=== PATIENT | female | born 1940 | race Caucasian/White ===

== ENCOUNTER 2018-11-23 08:47 | Inpatient (IN) ==
--- NOTE | 2018-10-22 10:55 | Anesthesiology Consultation ---
Date of Service October 22, 2018 Assessment & Plan (1) Encounter for pre-operative examination: Chart Review Chart Review: Acceptable Risk for Surgery and Patient seen in Pre Admission Testing Teaching & Discussion Instructed NPO after midnight before surgery, except medications with 15 cc of water. Medication instructions provided according to the PAT guidelines. History Surgery Operation Date: 11/23/18 08:50 Proposed Procedures p Left Reverse Total Shoulder Arthroplasty - Michael Horta, Height/Weight Height: 5 ft 4 in Weight: 72.4 kg Allergies Allergy/AdvReac Type Severity Reaction Status Date / Time No Known Allergies Allergy Verified 10/19/18 07:45 non latex bandaids Allergy Intermediate raw, Uncoded 10/22/18 11:14 blistery skin Medications Home Medications Medication Instructions Recorded Confirmed Last Taken alprazolam [Xanax] 0.25 mg PO BID PRN 10/19/18 10/19/18 Unknown calcium carbonate [Calcium 600] 1,200 mg PO QAM 10/19/18 10/19/18 Unknown cholecalciferol (vitamin D3) 400 unit PO QAM 10/19/18 10/19/18 Unknown [Vitamin D3] coenzyme Q10 [CoQ-10] 100 mg PO QAM 10/19/18 10/19/18 Unknown glucosamine-chondroitin 1 tab PO QAM 10/19/18 10/19/18 Unknown levothyroxine [Synthroid] 75 mcg PO QAM 10/19/18 10/19/18 Unknown meloxicam 7.5 mg PO BID 10/19/18 10/19/18 Unknown potassium chloride 10 meq PO QAM 10/19/18 10/19/18 Unknown pravastatin 40 mg PO QPM 10/19/18 10/19/18 Unknown triamterene-hydrochlorothiazid 1 tab PO QAM 10/19/18 10/19/18 Unknown vitamin B complex 1 tab PO QAM 10/19/18 10/19/18 Unknown Past Medical History Medical History Anxiety Depression Hyperlipidemia Hypertension 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 History of PONV No Motion Sickness Screening History of Motion Sickness: No Social History Smoking Status: Former smoker Do You Dip or Chew Tobacco: No Smoking End Date: QUIT 17 YEARS AGO Hx Alcohol Use: Yes Alcohol type: wine alcohol intake frequency: holidays/special occasions only Hx Substance Use: No substance use type: does not use Exercise / Class Metabolic Activity II 4-5 Yardwork/Stairs/Walk up hill (denies CP or SOB with stairs) Review of Systems Pt denies any recent chest pain, shortness of breath, palpitations, cough, fever or URI. Physical Exam Vital Signs BP: 137/79 P: 73bpm SPO2: 97% RA T: 97.6 F R: 16 ENMT Mouth: + dental restorations (few crowns); no chipped teeth and no loose teeth Thyromental Distance: > or= 3.5 Finger Breadths (3.5) Mallampati Class: II Neck + short neck; neck extension not limited Respiratory normal respiratory effort Auscultation: lungs clear to auscultation bilaterally Cardiovascular Rate/Rhythm: regular rate and regular rhythm Heart Sounds: no murmur Vessels: no carotid bruit Extremities: no edema Testing Electrocardiogram Date: 10/22/18 Findings: + NSR @ (73) R superior axis deviation. Low voltage QRS. Cannot r/o anterior infarct, age undetermined. *pt with good functional status, no CP complaints or significant cardiac hx, and large pendulous breasts that may have affected lead placement. EKG on stress test 2017 (below) showed PRWP/NSTWA. Chest X-Ray Date: 10/22/18 Findings: + NAD Stress Test Date: 06/02/17 Type: nuclear There is no significant regadenoson-induced perfusion abnormality detected to suggest the presence of ischemia. Left ventricle is normal in size. Left cj tricular wall motion is normal. Left ventricular ejection fraction is normal. There is right middle lobe linear atelectasis or scarring. Laboratory Results 10/22/18 11:35 10/22/18 11:35 Blood Type B Positive 10/22/18 11:35 Antibody Screen NEGATIVE 10/22/18 11:35 PT 10.3 Seconds (9.0-12.0) 10/22/18 11:35 INR 1.0 (0.9-1.1) 10/22/18 11:35 APTT 25.1 Seconds (21.0-31.0) 10/22/18 11:35
--- NOTE | 2018-10-22 10:58 | PAT Medication Instructions ---
Medication Instructions Date of Service October 22, 2018 Home Medications alprazolam [Xanax] 0.25 mg PO BID PRN calcium carbonate [Calcium 600] 1,200 mg PO QAM cholecalciferol (vitamin D3) 400 unit PO QAM coenzyme Q10 [CoQ-10] 100 mg PO QAM glucosamine-chondroitin 1 tab PO QAM levothyroxine [Synthroid] 75 mcg PO QAM meloxicam 7.5 mg PO BID potassium chloride 10 meq PO QAM pravastatin 40 mg PO QPM triamterene-hydrochlorothiazide 1 tab PO QAM vitamin B complex 1 tab PO QAM ASK your surgeon for instructions meloxicam 7.5 mg PO BID STOP taking 2 weeks before surgery coenzyme Q10 [CoQ-10] 100 mg PO QAM glucosamine-chondroitin 1 tab PO QAM DO NOT take the morning of surgery calcium carbonate [Calcium 600] 1,200 mg PO QAM cholecalciferol (vitamin D3) 400 unit PO QAM potassium chloride 10 meq PO QAM triamterene-hydrochlorothiazide 1 tab PO QAM vitamin B complex 1 tab PO QAM Take morning of surgery With a small sip of water, OTHERWISE NOTHING TO EAT OR DRINK AFTER MIDNIGHT: alprazolam [Xanax] 0.25 mg PO BID PRN (if needed) levothyroxine [Synthroid] 75 mcg PO QAM Take evening before surgery alprazolam [Xanax] 0.25 mg PO BID PRN (if needed) pravastatin 40 mg PO QPM Other Notes If you have any questions please call us at [phone] or [phone] or [phone] or [phone]
--- NOTE | 2018-10-22 12:17 | XRay Report ---
XR chest Pre-admission PA/Lat HISTORY: 78 years-old Female pat preoperative exam. No acute chest complaints COMPARISON: None available TECHNIQUE: PA and lateral views of the chest FINDINGS: Cardiac mediastinal and hilar silhouettes are within normal limits. Calcification the thoracic aortic arch. Surgical clip projects over the right lower neck. No pneumothorax, pleural effusion, focal air space consolidation or overt pulmonary edema. Indeterminate 11 mm radiodensity projects over the uppe r abdomen on the lateral view. Degenerative changes of the shoulders and spine. IMPRESSION: No acute process. The above report was generated using voice recognition software. It may contain grammatical, syntax o r spelling errors. Electronically signed by: Farhat Johnson M.D. 10/22/2018 12:16 PM
[2018-10-22 12:43] LABS: Basophils # (auto) 0.02 K/uL (0-0.2); Basophils % (auto) 0.3 %; Eosinophils # (auto) 0.12 K/uL (0-0.5); Eosinophils % (auto) 1.8 %; Hematocrit (blood only) 38.2 % (37-47); Hemoglobin 12.5 g/dL (12.0-16.0); Immature Granulocytes # (auto) 0.01 K/uL (0.00-0.02); Immature Granulocytes % (auto) 0.1 %; Lymphocytes # (auto) 2.17 K/uL (1.2-3.4); Lymphocytes % (auto) 32.3 %; Mean Corpuscular Hgb Conc 32.7 g/dL (32-36); Mean Corpuscular Volume 94.3 fL (80-100); Mean Platelet Volume 11.1 fL (7.4-10.4); Monocytes # (auto) 0.44 K/uL (0.11-0.59); Monocytes % (auto) 6.5 %; Neutrophils # (auto) 3.96 K/uL (1.4-6.5); Platelet Count 187 K/uL (130-400); RDW Coefficient of Variation 13.2 % (11.5-14.5); RDW Standard Deviation 45.7 fL (36.4-46.3); Red Blood Count 4.05 M/uL (4.2-5.4); White Blood Count 6.72 K/uL (4.8-10.8)
[2018-10-22 12:59] LABS: Partial Thromboplastin Ratio 0.9; Partial Thromboplastin Time 25.1 Seconds (21.0-31.0); Prothrombin Time 10.3 Seconds (9.0-12.0)
[2018-10-22 13:00] LABS: BUN Creatinine Ratio 25.9 (10-20); Calcium 9.5 mg/dl (8.5-10.1); Creatinine Clr Calc Pharmacy 41.1 ml/min; Est GFR (African American) 55.7; Est GFR (Non-African American) 48.1
--- NOTE | 2018-11-20 07:45 | History & Physical Report ---
Date of Service November 20, 2018 Assessment & Plan (1) Primary osteoarthritis of left shoulder: We will proceed with a reverse left shoulder arthroplasty. We have chosen to do a reverse shoulder arthroplasty because of the deformity of her humeral head and her glenoid. Postoperatively she will be placed in a sling and kept overnight for postoperative medical management. She plans to use [email or web address] upon discharge. 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 She had a several year history of increasing left shoulder pain. X-rays and clinical examination have been diagnostic for advanced osteoarthritis of the left shoulder. After failing conservative treatment, she has elected proceed with a left reverse shoulder arthroplasty. Allergies Allergy/AdvReac Type Severity Reaction Status Date / Time No Known Allergies Allergy Verified 10/19/18 07:45 non latex bandaids Allergy Intermediate raw, Uncoded 10/22/18 11:14 blistery skin Home Medications Home Medications Medication Instructions Recorded Confirmed Type alprazolam [Xanax] 0.25 mg PO BID PRN 10/19/18 10/19/18 History calcium carbonate [Calcium 600] 1,200 mg PO QAM 10/19/18 10/19/18 History cholecalciferol (vitamin D3) 400 unit PO QAM 10/19/18 10/19/18 History [Vitamin D3] coenzyme Q10 [CoQ-10] 100 mg PO QAM 10/19/18 10/19/18 History glucosamine-chondroitin 1 tab PO QAM 10/19/18 10/19/18 History levothyroxine [Synthroid] 75 mcg PO QAM 10/19/18 10/19/18 History meloxicam 7.5 mg PO BID 10/19/18 10/19/18 History potassium chloride 10 meq PO QAM 10/19/18 10/19/18 History pravastatin 40 mg PO QPM 10/19/18 10/19/18 History triamterene-hydrochlorothiazid 1 tab PO QAM 10/19/18 10/19/18 History vitamin B complex 1 tab PO QAM 10/19/18 10/19/18 History Past Med/Surg History Medical History Anxiety Depression Hyperlipidemia Hypertension Hypothyroidism 2/2 thyroidectomy Osteopenia Surgical History H/O total thyroidectomy History of breast biopsy X 2 History of cataract surgery BL History of colonoscopy W/ POLYPECTOMY History of lumpectomy of right breast X 2 - BENIGN History of parathyroidectomy 2/2 hypercalcemia History of tooth extraction Social History Preferred Language: Faroese Communication Ability: Effective Beliefs That Will Affect Care: Latter-Day Latter-Day Beliefs: TAOISM Current Living Situation: Alone Feels Safe at Home: Yes Smoking Status: Former smoker Second Hand Exposure: Yes (PREVIOUS EXP AT PLACE OF EMPLOYMENT) Hx Alcohol Use: Yes Alcohol type: wine Hx Substance Use: No Review of Systems All systems reviewed & are unremarkable except as noted in HPI & below Physical Exam Constitutional: WD/WN, vitals as above Eyes: PERRL, conjunctivae normal, anicteric sclerae ENMT: external ear and nose normal, oropharynx normal Neck: trachea midline, no thyromegaly Respiratory: normal respiratory effort Cardiovascular: RRR, no murmur, no edema Gastrointestinal (Abdomen): normal bowel sounds, soft, nontender, no hepatosplenomegaly Musculoskeletal: Physical examination of the left shoulder reveals decreased range of motion and crepitis throughout. There is good strength with full can testing and external rotation. There is tenderness palpation along the anterior glenohumeral joint line. The right upper extremity is neurovascularly intact. Psychiatric: A+Ox3, euthymic affect Results & Data Diagnostic Findings Radiographs of the left shoulder show osteoarthritis of the glenohumeral joint. There is joint space narrowing, osteophyte formation, and [id number] articulation.
[~2018-11-23 08:47] MED LIST: ACETAMINOPHEN 500 MG TAB PO SCH; BUPIVACAINE 0.5 % 5 MG/1 ML PF 10ML VIAL ONE; CEFAZOLIN 2000MG 2,000 MG/15 ML SYR IV SCH; FAMOTIDINE 20 MG TAB PO SCH; GABAPENTIN 300 MG PO SCH; LR 60ML/HR IV SCH; ROPIVACAINE 0.5% HCL/PF 150 MG, BUPIVACAINE 0.5% MPF 30 ML, EPINEPHrine 30MG/30ML (OR U... INFIL SCH; TRANEXAMIC ACID 1,000 MG **IV Intra-op IV SCH; TRANEXAMIC ACID 1,000 MG **IV Pre-op IV SCH
[2018-11-23] MEDS: LR 15ML/HR IV SCH ×2 (09:47→10:00)
[2018-11-23] MEDS ORDERED: fentaNYL citrate 100 MCG/2 ML VIAL ONE (10:28)
[2018-11-23] MEDS ORDERED: MIDAZOLAM HCL 1 MG/ML 2ML VIAL ONE (10:28)
--- NOTE | 2018-11-23 10:59 | History & Physical Bridge Note ---
Date of Service November 23, 2018 History & Physical Bridge Note I have examined the patient, reviewed the History & Physical and in the interval since the performance of the History & Physical I have noted the following changes of clinical significance: no changes noted
[2018-11-23] MEDS ORDERED: POVIDONE-IODINE OP SOLN 30 ML BTL ONE (11:09)
[2018-11-23] MEDS ORDERED: ORTHO JOINT ANESTHETIC ONE (11:09)
[2018-11-23] MEDS ORDERED: GLYCOPYRROLATE 0.2 MG/ML VIAL ONE (12:03)
[2018-11-23] MEDS ORDERED: DEXAMETHASONE SOD INJ 4 MG/ML VIAL ONE (12:03)
[2018-11-23] MEDS ORDERED: PROPOFOL IV EMULSION 10 MG/ML 20 ML VIAL IV ONE (12:03)
[2018-11-23] MEDS ORDERED: NEOSTIGMINE METHYLSULFATE 5 MG/5 ML SYR ONE (12:03)
[2018-11-23] MEDS ORDERED: ONDANSETRON INJ 2 MG/ML 2 ML VIAL ONE (12:03)
--- NOTE | 2018-11-23 12:56 | Operative Report ---
Post Operative Report Pre & Post Diagnosis Operation Date: 11/23/18 11:00 Pre-Op Diagnosis: Degenerative Joint Disorder Left Shoulder Post-Op Diagnosis: Degenerative Joint Disorder Left Shoulder Procedure Operation Date: 11/23/18 11:00 Actual Procedures p Left Reverse Total Shoulder Arthroplasty, Uncemented(Left) - Michael Horta DO Surgeon Michael Horta DO Highway Landscape Architect Michael Mcgee PAC Estimated Blood Loss 200 Findings Consistent with Post-Op Diagnosis Specimens Left humeral head Complications none Disposition Disposition: Recovery Room Indications 88-year-old female who presented my office with complaints of chronic increasing left shoulder pain. X-rays and clinical examination were diagnostic for rotator cuff arthropathy of the left shoulder. After failing conservative treatment, she elected to proceed with a left reverse shoulder arthroplasty. Description of Procedure Implants used: I used a [employer]omet Comprehensive reverse total shoulder arthroplasty system with a size 9 press fit mini humeral stem, a standard humeral tray and a +3 humeral bearing, a 25 mm mini baseplate with a 6.5 mm central screw and superior and inferior locking screws, and a size 36 mm eccentric glenosphere. The patient arrived at [facility] for the above procedure. There were seen in the preoperative holding area and the operative extremity was identified and signed. They were given a preoperative antibiotic and an interscalene nerve block. They were taken back to the operating room, laid on table in supine position, and put under general anesthesia. They were then put into the beachchair position. The shoulder was then prepped and draped in sterile fashion. A timeout was done and the patient in the operative extremity was properly identified. A deltopectoral approach was used. Dissection was taken down through the fascia and the deltoid was retracted laterally and the conjoined tendon was retracted medially. The anterior shoulder was exposed. The long head of the biceps tendon was tenodesed to the upper border of the pectoralis major. The subscapularis was then released off the lesser tuberosity with a centimeter of cuff tissue remaining. The inferior capsule was released and the humeral head was dislocated. A canal finding reamer was sent down the center of the humeral canal. Sequential reaming up to a size 9 reamer was done. Off that reamer, a proximal humeral resection guide was placed. The proximal humerus was resected at 135 of inclination and 25 of retroversion. Osteophytes were then removed and the glenoid was exposed. Time was spent doing a complete capsular and labral release. A Selligy signature guide was then attached onto the anterior rim of the glenoid. A 3.2 mm Steinmann pin was then placed in the reverse total shoulder arthroplasty hole. The glenoid baseplate was then reamed. The final size 25 mm mini baseplate was then impacted in the place. A 6.5 mm central screw was then placed followed by superior and inferior locking screws. A 36 mm eccentric glenoid sphere was then impacted into place. Surrounding soft tissues were then injected with 100 cc an orthopedic pain control cocktail. The proximal humerus was then exposed. Sequ ential broaching of the humerus up to a size 9 broach was done. Off that broach a +3 humeral tray was trialed. The shoulder was then reduced, brought through a full range of motion and felt to be stable. The shoulder was then dislocated and the broach was removed. The final size 9 mini press-fit humeral stem was then impacted into place. A +3 humeral bearing was then snapped onto a standard humeral tray and the ring-lock mechanism was engaged. The humeral tray was then impacted onto the humeral stem. The shoulder was once again reduced, brought through a full range of motion and felt to be stable. The subscapularis was then tenodesed back to the lesser tuberosity with transosseous FiberWire sutures and side to side sutures with the arm in 45 of external rotation. A dilute betadyne lavage was then done for 3 minutes. The joint was then irrigated with normal saline solution. Hemostasis was obtained. The skin was then closed with 2-0 Vicryl, 3-0V lock suture, and sarath. A soft dressing and a regular arm sling was placed. The patient was then extubated and transferred to a hospital bed. They were taken to the postanesthesia care unit in stable condition. They tolerated the procedure well. I attest to the content of the Intraoperative Record and any orders documented therein. Any exceptions are noted below.
--- NOTE | 2018-11-23 13:45 | XRay Report ---
XR shoulder LT min 2V routine CLINICAL HISTORY: Post shoulder surgery COMPARISON: None. DISCUSSION: 2 views reveal postsurgical changes of a reverse total left shoulder arthroplasty. Everetts ing skin sarath are evident. There is no dislocation. IMPRESSION: Postsurgical changes of a reverse total left shoulder arthroplasty. Electronically signed by: Cristo Monique M.D. 11/23/2018 1:43 PM
--- NOTE | 2018-11-23 14:05 | Anesthesiology Progress Note ---
Date of Service November 23, 2018 Anesthesia Post Procedure Vital Signs Vital Signs: Temp Pulse Pulse Pulse Resp BP BP 11/23/18 13:58 37.2 C 11/23/18 13:55 64 15 11/23/18 13:51 72 15 137/69 11/23/18 13:50 75 16 11/23/18 13:46 76 10 L 133/69 11/23/18 13:41 71 10 L 139/57 L 11/23/18 13:40 69 16 11/23/18 13:37 74 13 148/67 H 11/23/18 13:35 74 13 11/23/18 13:31 77 12 154/72 H 11/23/18 13:27 75 16 153/70 H 11/23/18 13:25 75 13 11/23/18 13:21 76 13 134/82 11/23/18 13:20 75 12 11/23/18 13:17 75 15 148/64 H 11/23/18 13:16 78 13 11/23/18 13:14 81 15 127/63 11/23/18 13:13 36.5 C 82 16 127/63 11/23/18 09:29 36.4 C L 78 18 185/75 H Pulse Ox 11/23/18 13:58 99 11/23/18 13:55 98 11/23/18 13:51 99 11/23/18 13:50 100 11/23/18 13:46 88 L 11/23/18 13:41 100 11/23/18 13:40 100 11/23/18 13:37 99 11/23/18 13:35 11/23/18 13:31 100 11/23/18 13:27 100 11/23/18 13:25 100 11/23/18 13:21 100 11/23/18 13:20 100 11/23/18 13:17 100 11/23/18 13:16 11/23/18 13:14 100 11/23/18 13:13 100 11/23/18 09:29 97 Pain Intensity Left Shoulder: Pain Intensity: 0 Transfer of Care Handoff Completed per policy Notes Mental Status: alert / awake / arousable Patient Amnestic to Procedure: Yes Nausea / Vomiting: adequately controlled Pain: adequately controlled Airway Patency, RR, SpO2: stable & adequate BP & HR: stable & adequate Hydration State: stable & adequate Anesthetic Complications: no major complications apparent Notes: block working well in pacu
[2018-11-23] MEDS ORDERED: MAGNESIUM HYDROXIDE SUSP 30 ML UDC PO PRN (14:20)
[2018-11-23] MEDS ORDERED: TRAMADOL HCL 50 MG TABLET PO PRN (14:20)
[2018-11-23] MEDS ORDERED: METOCLOPRAMIDE HCL INJ 5 MG/ML 2 ML VIAL IV PRN (14:20)
[2018-11-23] MEDS ORDERED: ALPRAZolam 0.25 MG TABLET PO PRN (14:20)
[2018-11-23] MEDS ORDERED: HYDROmorphone INJ 0.5 MG/0.5 ML SYR IV PRN (14:20)
[2018-11-23] MEDS ORDERED: ONDANSETRON INJ 2 MG/ML 2 ML VIAL IV PRN (14:20)
[2018-11-23] MEDS ORDERED: SODIUM CHLORIDE 0.9% 1000ML 1,000 ML IV SCH (14:20)
[2018-11-23] MEDS ORDERED: NALOXONE HCL 0.4 MG/1 ML VIAL/CARP IV PRN (14:20)
[2018-11-23] MEDS ORDERED: BISACODYL 10 MG SUPP PR PRN (14:20)
[2018-11-23] MEDS: KETOROLAC TROMETHAMINE 15 MG/ML VIAL IV SCH ×2 (17:49→23:46)
[2018-11-23] MEDS: CEFAZOLIN 2000MG 2,000 MG/15 ML SYR IV SCH (20:22)
[2018-11-23] MEDS: DOCUSATE SODIUM 100 MG CAP PO SCH (20:23)
[2018-11-23] MEDS ORDERED: SENNA 8.6 MG TAB PO SCH (21:00)
[2018-11-23] MEDS ORDERED: PRAVASTATIN SOD 40 MG TAB PO SCH (21:00)
[2018-11-23] MEDS: ACETAMINOPHEN 500 MG TAB PO SCH (21:53)
[2018-11-24] MEDS ORDERED: COUGH DROP (SUGAR FREE) LOZ 24 LOZ/1 BOX BUCCAL PRN (03:15)
[2018-11-24] MEDS ORDERED: COUGH DROP (SUGAR FREE) LOZ 24 LOZ/1 BOX BUCCAL ONE (03:29)
[2018-11-24] MEDS: CEFAZOLIN 2000MG 2,000 MG/15 ML SYR IV SCH (03:32)
[2018-11-24] MEDS: KETOROLAC TROMETHAMINE 15 MG/ML VIAL IV SCH ×2 (05:32→11:05)
[2018-11-24] MEDS ORDERED: LEVOTHYROXINE SODIUM 75 MCG TABLET PO SCH (06:30)
[2018-11-24] MEDS: ACETAMINOPHEN 500 MG TAB PO SCH (06:39)
[2018-11-24 07:24] VITALS: BP 146/77; PULSE 84; TEMP 97.7; O2SAT 95
[2018-11-24 07:33] LABS: Basophils # (auto) 0.01 K/uL (0-0.2); Basophils % (auto) 0.1 %; Hematocrit (blood only) 34.1 % (37-47); Hemoglobin 11.8 g/dL (12.0-16.0); Immature Granulocytes # (auto) 0.01 K/uL (0.00-0.02); Immature Granulocytes % (auto) 0.1 %; Lymphocytes # (auto) 0.97 K/uL (1.2-3.4); Lymphocytes % (auto) 10.5 %; Mean Corpuscular Hgb Conc 34.6 g/dL (32-36); Mean Corpuscular Volume 92.2 fL (80-100); Mean Platelet Volume 10.7 fL (7.4-10.4); Monocytes # (auto) 0.73 K/uL (0.11-0.59); Monocytes % (auto) 7.9 %; Neutrophils # (auto) 7.51 K/uL (1.4-6.5); Neutrophils % (auto) 81.4 %; Platelet Count 169 K/uL (130-400); RDW Standard Deviation 43.9 fL (36.4-46.3); White Blood Count 9.23 K/uL (4.8-10.8)
[2018-11-24 08:07] LABS: BUN Creatinine Ratio 18.7 (10-20); Calcium 8.4 mg/dl (8.5-10.1); Creatinine Clr Calc Pharmacy 33.5 ml/min; Est GFR (African American) 43.9; Est GFR (Non-African American) 37.9; Potassium 3.4 mmol/L (3.5-5.1)
[2018-11-24] MEDS: DOCUSATE SODIUM 100 MG CAP PO SCH (08:36)
[2018-11-24] MEDS ORDERED: POTASSIUM CHLORIDE 10 MEQ TABCR PO SCH (09:00)
[2018-11-24] MEDS ORDERED: TRIAMTERENE/HCTZ 37.5/25MG TAB PO SCH (09:00)
[2018-11-24] MEDS ORDERED: FLUOXETINE HCL 20 MG CAP PO SCH (09:00)
[2018-11-24] MEDS ORDERED: CHOLECALCIFEROL (VITAMIN D) 400 UNITS TABLET PO SCH (09:00)
[2018-11-24] MEDS ORDERED: MULTIVITAMIN TAB PO SCH (09:00)
--- NOTE | 2018-11-24 10:40 | Orthopedic Progress Note ---
Date of Service November 24, 2018 Assessment & Plan (1) Primary osteoarthritis of left shoulder: Overall she is doing very well. She is participating well with physical therapy. Her pain is controlled. She can be discharged home later this morning. [facility] will [facility]. She will follow-up with orthopedics in 2 weeks. Present on Admission?: Yes Subjective Aj was seen and examined at bedside this morning. Overall she is doing very well. She was just getting up and ambulating with physical therapy. She has little to no pain in her shoulder. She has no complaints. Physical Exam Musculoskeletal: On physical examination of the left shoulder, the dressing is clean and dry. She is wearing a sling as instructed. Her radial nerve has not woken up yet. She still cannot dorsiflex her wrist. She still some tingling into her thumb. She is able to flex her fingers. Results & Data Vital Signs (Past 12 Hours) Vital Signs Temp Pulse Resp BP Pulse Ox 11/24/18 07:23 36.5 C 84 18 146/77 H 95 11/24/18 03:13 36.8 C 73 16 119/72 92 11/23/18 23:12 36.5 C 70 14 121/74 93 Laboratory Results H & H 10/22/18 11/24/18 Range/Units 11:35 07:09 Hgb 12.5 11.8 L (12.0-16.0) g/dL Hct 38.2 34.1 L (37-47) % Coagulation 10/22/18 Range/Units 11:35 INR 1.0 (0.9-1.1) Diagnostic Findings Postoperative x-rays of the left shoulder show the prosthesis to be in anatomic alignment without any evidence of fracture, dislocation, or loosening.
--- NOTE | 2018-11-24 10:41 | Discharge Summary ---
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 She had a several year history of increasing left shoulder pain. X-rays and clinical examination have been diagnostic for advanced osteoarthritis of the left shoulder. After failing conservative treatment, she has elected proceed with a left reverse shoulder arthroplasty. Specialty Data Orthopedic H & H 10/22/18 11/24/18 Range/Units 11:35 07:09 Hgb 12.5 11.8 L (12.0-16.0) g/dL Hct 38.2 34.1 L (37-47) % Coagulation 10/22/18 Range/Units 11:35 INR 1.0 (0.9-1.1) Discharge Data Consultations 11/23/18 14:20 Consult Case Management - Discharge Planning Routine Procedures Performed Operation Date: 11/23/18 11:00 Actual Procedures p Left Reverse Total Shoulder Arthroplasty, Uncemented(Left) - Michael Horta DO Hospital Course (1) Primary osteoarthritis of left shoulder: On November 23, 2018 Aj arrived at [facility] and underwent a left reverse shoulder arthroplasty without complication. She had a general anesthetic and a left interscalene nerve block. Postoperatively she was placed in a sling and discharged to general orthopedic floors. Her hospital course was uneventful. On postop day #1 her H&H was stable and her pain was well controlled. She was able to ambulate well with physical therapy and do range of motion exercises. She was then discharged home with [facility]. She will follow-up with orthopedics in 2 weeks. Discharge Instructions Home Medications Medication Instructions Recorded Confirmed alprazolam [Xanax] 0.25 mg PO BID PRN 10/19/18 11/23/18 calcium carbonate [Calcium 600] 1,200 mg PO QAM 10/19/18 11/23/18 cholecalciferol (vitamin D3) 400 unit PO QAM 10/19/18 11/23/18 [Vitamin D3] coenzyme Q10 [CoQ-10] 100 mg PO QAM 10/19/18 11/23/18 glucosamine-chondroitin 1 tab PO QAM 10/19/18 11/23/18 levothyroxine [Synthroid] 75 mcg PO QAM 10/19/18 11/23/18 meloxicam 7.5 mg PO BID 10/19/18 11/23/18 potassium chloride 10 meq PO QAM 10/19/18 11/23/18 pravastatin 40 mg PO QPM 10/19/18 11/23/18 triamterene-hydrochlorothiazid 1 tab PO QAM 10/19/18 11/23/18 vitamin B complex 1 tab PO QAM 10/19/18 11/23/18 fluoxetine [Prozac] 20 mg PO DAILY 11/23/18 11/23/18 Previous Rx's Medication Instructions Recorded tramadol 50 - 100 mg PO Q6 PRN #40 tab 11/24/18
--- NOTE | 2018-11-24 11:10 | Anesthesiology Progress Note ---
Date of Service November 24, 2018 Review of Systems Review of Systems: All systems reviewed & are unremarkable except as noted in HPI & below Physical Exam Vital Signs: Last Vital Signs Temp 36.5 C 11/24/18 10:46 Pulse 84 11/24/18 10:46 Resp 18 11/24/18 10:46 BP 146/77 H 11/24/18 10:46 Pulse Ox 95 11/24/18 10:46 Results & Data Medications Administered Acetaminophen (Tylenol) 1,000 mg PO Q8 [facility] Stop: 12/23/18 21:59 Last Admin: 11/24/18 06:39 Dose: 1,000 mg Documented by: [id number] Admin: 11/23/18 21:53 Dose: 1,000 mg Documented by: [id number] Docusate Sodium (Colace) 100 mg PO BID [facility] Stop: 12/23/18 20:59 Last Admin: 11/24/18 08:36 Dose: 100 mg Documented by: [id number] Admin: 11/23/18 20:23 Dose: 100 mg Documented by: [id number] Fluoxetine HCl (Prozac) 20 mg PO DAILY [facility] Stop: 12/24/18 08:59 Last Admin: 11/24/18 08:38 Dose: 20 mg Documented by: [id number] Ketorolac Tromethamine (Toradol) 15 mg IV Q6H [facility] Stop: 11/25/18 12:01 Last Admin: 11/24/18 11:05 Dose: 15 mg Documented by: [id number] Admin: 11/24/18 05:32 Dose: 15 mg Documented by: [id number] Admin: 11/23/18 23:46 Dose: 15 mg Documented by: [id number] Admin: 11/23/18 17:49 Dose: 15 mg Documented by: [id number] Levothyroxine Sodium (Synthroid) 75 mcg PO DAILYBB [facility] Stop: 12/24/18 06:29 Last Admin: 11/24/18 05:32 Dose: 75 mcg Documented by: [id number] Magnesium Hydroxide (Milk Of Magnesia) 30 ml PO Q6H PRN PRN Reason: Constipation Stop: 12/23/18 14:19 Last Admin: 11/23/18 23:23 Dose: 30 ml Documented by: [id number] Multivitamins (Multivitamin Tab) 1 tab PO QAM [facility] Stop: 12/24/18 08:59 Last Admin: 11/24/18 08:37 Dose: 1 tab Documented by: [id number] Potassium Chloride (Klor-Con M10) [facility]q [facility]: 12/24/18 08:59 Last Admin: 11/24/18 08:36 Dose: 10 meq Documented by: [id number] Pravastatin Sodium (Pravachol) 40 mg PO QPM [facility] Stop: 12/23/18 20:59 Last Admin: 11/23/18 20:23 Dose: 40 mg Documented by: [id number] Sennosides (Senokot) 17.2 mg PO HS [facility] Stop: 12/23/18 20:59 Last Admin: 11/23/18 20:23 Dose: 17.2 mg Documented by: [id number] Triamterene/HCTZ (Maxzide 37.5/25mg) 1 tab [facility] Stop: 12/24/18 08:59 Last Admin: 11/24/18 08:37 Dose: 1 tab Documented by: [id number] Vitamin D (Vitamin D3) 400 units [facility] Stop: 12/24/18 08:59 Last Admin: 11/24/18 08:38 Dose: 400 units Documented by: [id number]
== END 2018-11-24 11:55 | disposition home health service (06) | DRG 483 ==
LOC: ASU 08:47 → 3E 14:10